=== PATIENT | female | born 1995 | race Two or more races ===

== ENCOUNTER 2017-05-17 17:51 | Emergency (ER) | payer OTHER ==
[2017-05-17 17:55] VITALS: BP 132/72; PULSE 78; TEMP 98.8; BMI 16.2
--- NOTE | 2017-05-17 17:55 | PDOC ---
Rapid Medical Evaluation Time Seen by Provider: 05/17/17 17:52 Medical Evaluation: 05/17/17 17:52 I have performed a brief in-person evaluation of this patient. The patient presents with a chief complaint of: pain to R knee cap x 3 days s/p slipping and twisting knee Pertinent physical exam findings: no ecchymosis/swelling/erythema to R knee I have ordered the following: x-ray The patient will proceed to the ED for further evaluation. Discharge Disposition - Diagnosis Knee pain - Referrals - Patient Instructions - Post Discharge Activity
--- NOTE | 2017-05-17 18:37 | PDOC ---
History of Present Illness - General Chief Complaint: Injury Stated Complaint: KNEE PAIN Time Seen by Provider: 05/17/17 17:52 History Source: Patient Exam Limitations: No Limitations - History of Present Illness Initial Comments: 05/17/17 18:37 Came for evaluation of right knee pain 3 days. States twisted her right knee and since that time has had swelling and tenderness to the medial and lateral aspects. Occurred: reports: last week Severity: reports: mild, moderate Pain Location: reports: lower extremity (right knee) Modifying Factors: improves with: cold therapy, pain medication Loss of Consciousness: no loss of consciousness Associated Symptoms (Fall): denies symptoms Past History - Travel Traveled outside of the country in the last 30 days: No Close contact w/someone who was outside of country & ill: No - Past Medical History Allergies/Adverse Reactions: Allergies Allergy/AdvReac Type Severity Reaction Status Date / Time No Known Allergies Allergy Verified 05/17/17 17:53 COPD: No - Suicide/Smoking/Psychosocial Hx Smoking History: Never smoked Have you smoked in the past 12 months: No Information on smoking cessation initiated: No Hx Alcohol Use: No Drug/Substance Use Hx: No Substance Use Type: None Review of Systems - Review of Systems Able to Perform ROS?: Yes Is the patient limited Nepalese proficient: Yes Constitutional: Yes: Symptoms Reported, See HPI, Malaise HEENTM: No: Symptoms Reported Respiratory: No: Symptoms reported Cardiac (ROS): No: Symptoms Reported Musculoskeletal: Yes: Symptoms Reported, See HPI, Joint Pain, Joint Swelling, Joint Stiffness Integumentary: Yes: Bruising. No: Symptoms Reported All Other Systems: Reviewed and Negative *Physical Exam - Vital Signs Last Vital Signs Temp Pulse Resp BP Pulse Ox 98.8 F 78 18 132/72 100 05/17/17 17:53 05/17/17 17:53 05/17/17 17:53 05/17/17 17:53 05/17/17 17:53 - Physical Exam General Appearance: Yes: Nourished, Appropriately Dressed, Apparent Distress HEENT: positive: TAN, Normal ENT Inspection, Normal Voice, TMs Normal, Pharynx Normal Neck: positive: Supple. negative: Tender Respiratory/Chest: positive: Lungs Clear Gastrointestinal/Abdominal: positive: Soft. negative: Tender Extremity: positive: Normal Capillary Refill, Normal Range of Motion, Swelling ( patella is mobile, has some mild ballottement inferiorly with some slight tenderness to the medial and lateral aspect of knee joint. Has full range of motion but tenderness is reproduced on flexion past 45. 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 Will provide Lino wrap as we have not any orthotic devices/immobilizers small enough to fit patient *DC/Admit/Observation/Transfer Diagnosis at time of Disposition: Knee pain Qualifiers: Chronicity: acute Laterality: right Qualified Code(s): M25.561 - Pain in right knee - Discharge Dispostion Disposition: HOME Condition at time of disposition: Stable Admit: No - Referrals Referrals: Tono Pace [Primary Care Provider] - Gabe Keating MD [Staff Physician] - - Patient Instructions Printed Discharge Instructions: DI for Knee Sprain Additional Instructions: Rest, ice to area on and off for 15 minutes 4-6 times a day Avoid heavy lifting or exercise until pain and swelling is resolved or until further directed Keep area highly elevated to reduce swelling Use splints/Lino wrap as directed Followup with orthopedist in one to 2 days if not improving, if significantly improved may wait one week for followup with orthopedist May use ibuprofen 2-200 mg tablets every 6 hours as needed for pain - Post Discharge Activity Forms/Work/School Notes: Back to Work
== END 2017-05-17 19:30 | disposition home or self-care (01) ==
LOC: JERFT 17:51
DX: M25.561 Pain in right knee (principal); X50.1XXA Overexertion from prolonged static or awkward postures, initial encounter; Y93.89 Activity, other specified; Y92.89 Other specified places as the place of occurrence of the external cause; Y99.8 Other external cause status
CPT/HCPCS: 73562-TC-RT-FY; 84703; 99281-25

== ENCOUNTER 2017-08-20 10:45 | Emergency (ER) | payer OTHER ==
[2017-08-20 10:51] VITALS: BMI 17.4
--- NOTE | 2017-08-20 11:20 | PDOC ---
History of Present Illness - General Chief Complaint: Suicidal Stated Complaint: SUICIDAL THOUGHTS Time Seen by Provider: 08/20/17 11:12 History Source: Patient Exam Limitations: No Limitations - History of Present Illness Initial Comments: 08/20/17 11:15 21-year-old female with a history of depression no prior treatment for this here today with concerns for recent suicidal attempt and suicidal ideations. Patient is here with her cousin who she expressed these ideations 2. Patient states that she has been suffering with severe beer depression over the last 2 years has had thoughts in the past of jumping in front of a train in a train tracks she reports she has been taking excessive NyQuil and Robitussin daily for both sleep and wanting to hurt herself. Patient was planning to run away today with a boyfriend when her cousin intervened. States that she has never told anybody about the suicidal ideations previously has never been admitted for depression. Denies any recent ingestions other than the daily NyQuil and Robitussin. Denies drug use no family history of suicide or psychiatric illness that is known however the patient is adopted. States that she also tried to wrap a telephone cord around her neck 2 days prior attempts to hurt herself Past History - Past Medical History Allergies/Adverse Reactions: Allergies Allergy/AdvReac Type Severity Reaction Status Date / Time No Known Allergies Allergy Verified 08/20/17 10:50 Home Medications: Ambulatory Orders Unobtainable 08/21/17 COPD: No - Suicide/Smoking/Psychosocial Hx Smoking History: Never smoked Have you smoked in the past 12 months: No Hx Alcohol Use: No Drug/Substance Use Hx: No Substance Use Type: None Review of Systems - Review of Systems Constitutional: No: Chills, Diaphoresis Respiratory: No: Cough, Orthopnea Cardiac (ROS): No: Chest Pain, Edema Musculoskeletal: No: See HPI, Back Pain, Gout Integumentary: No: Bruising Neurological: No: Headache Psychiatric: Yes: Depression All Other Systems: Reviewed and Negative *Physical Exam - Vital Signs Last Vital Signs Temp Pulse Resp BP Pulse Ox 98 F 101 H 20 122/67 99 08/20/17 10:47 08/20/17 10:47 08/20/17 10:47 08/20/17 10:47 08/20/17 10:47 - Physical Exam General Appearance: Yes: Appropriately Dressed HEENT: positive: Normal ENT Inspection Neck: positive: Trachea midline Respiratory/Chest: positive: Lungs Clear, Normal Breath Sounds Cardiovascular: positive: Regular Rhythm, Regular Rate, S1, S2 Gastrointestinal/Abdominal: positive: Normal Bowel Sounds, Flat, Soft Musculoskeletal: positive: Normal Inspection Extremity: positive: Normal Capillary Refill, Normal Inspection Integumentary: positive: Normal Color, Dry, Warm Neurologic: positive: Fully Oriented, Alert, Motor Strength 5/5, Depressed Affect, Other (positive SI) Heart Score/ECG Review #1 General ECG Interpretation: Sinus Rhythm, Normal Rate (84), Normal Intervals, No acute ischemic changes ED Treatment Course - LABORATORY CBC & Chemistry Diagram: 08/20/17 11:20 08/20/17 11:20 Medical Decision Making - Medical Decision Making 08/20/17 11:19 22-year-old female with recent suicide attempts and depression with current suicidal ideations. Plan to rule out toxic ingestion including tox screen Tylenol and salicylate levels basic labs and EKG. Patient is high risk due to the age of the patient as well as recent attempts and no current psychiatric treatment. Will seek psychiatric consult here in the ED patient may require admission for suicidality 08/20/17 15:10 pt seen by psychiatryk dr kraus, agree pt will require admission. 2pc filed, will work on placement for psychiatric admission. labs unremarkabel. *DC/Admit/Observation/Transfer Diagnosis at time of Disposition: Depressed - Discharge Dispostion Disposition: TRANSFER ACUTE CARE/OTHER HOSP Condition at time of disposition: Fair - Referrals - Patient Instructions - Post Discharge Activity Forms/Work/School Notes: My Personal Safety Plan
[2017-08-20 11:39] LABS: BASO % 0.8 % (0-2.0); EOS % 0.8 % (0-4.5); HEMATOCRIT 38.6 % (32.4-45.2); HEMOGLOBIN 12.4 GM/dL (10.7-15.3); LYMPH % 26.7 % (8-40); MCH 26.7 pg (25.7-33.7); MCHC 32.1 g/dl (32.0-36.0); MEAN PLT VOLUME 7.9 fl (7.5-11.1); MONO % 6.8 % (3.8-10.2); NEUT % 64.9 % (42.8-82.8); PLATELET COUNT 380 K/MM3 (134-434); RBC 4.64 M/mm3 (3.60-5.2); RDW 13.6 % (11.6-15.6); WHITE BLOOD COUNT 8.6 K/mm3 (4.0-10.0)
[2017-08-20 12:03] LABS: ALBUMIN 4.3 g/dl (3.4-5.0); ANION GAP 9 (8-16); BLOOD UREA NITROGEN 10 mg/dL (7-18); CALCIUM 9.1 mg/dL (8.5-10.1); CHLORIDE 105 mmol/L (98-107); CO2 24 mmol/L (21-32); CREATININE 1.1 mg/dL (0.55-1.02); GLUCOSE,RANDOM 92 mg/dL (74-106); POTASSIUM 3.3 mmol/L (3.5-5.1); SGOT/AST 15 U/L (15-37); SGPT/ALT 13 U/L (12-78); SODIUM 138 mmol/L (136-145)
[2017-08-20 12:06] LABS: ALK PHOS 64 U/L (45-117); BILIRUBIN,TOTAL 0.5 mg/dL (0.2-1.0); TOT PROT 8.4 g/dl (6.4-8.2)
[2017-08-20 12:11] LABS: COCAINE, UR NEGATIVE ng/ml (CUTOFF=300); METHADONE, UR NEGATIVE ng/ml (CUTOFF=300); OPIATES, URI NEGATIVE ng/ml (CUTOFF=300); PHENCYCLIDINE,URINE NEGATIVE ng/ml (CUTOFF=25); URINE AMPHETAMINES NEGATIVE ng/ml (CUTOFF=500); URINE BARBITURATES NEGATIVE ng/ml (CUTOFF=200); URINE BENZODIAZEPINES NEGATIVE ng/ml (CUTOFF=200)
--- NOTE | 2017-08-20 14:59 | CON.PSY ---
Psychiatry Consult Chief Complaint: 22 year old ind[place] female, brought WE$R for Suicidal ideas and palns< Patient reports many [id number] attempts from [id number]. she tries to hand herself with a telephonev Cord few days ago> patient si adopted andc feels abandoned and a constant failure.patient nmever soughyt Psychiatric treatment in them past. Symptoms: reports: Depressed Mood, Anhedonia, Worthlessness/Guilt, Decreased Energy, Suicidality, Self destructive thoughts, Appetite Disturbance, Weight change, Hopelessness, Sleep Disturbance - Previous Psychiatric Treatment Outpatient: None Inpatient: None - Previous Substance Abuse Treatment Outpatient: None Inpatient: None - Allergies Allergies: Allergies Allergy/AdvReac Type Severity Reaction Status Date / Time No Known Allergies Allergy Verified 08/20/17 10:50 - Current Living Status Usual Living Arrangement: With Parent - Current Mental Status Evaluation Appearance: Well Groomed Attitude: Cooperative - Affect Affect: Constrictive Appropriateness: Appropriate to Content - Mood Mood: Depressed - Speech/Language Expressive: Coherent - Psychomotor Activity Psychomotor Activity: Slowed - Thought Process Thought Process: Intact - Thought Content Hallucinations: Absent Delusions: Absent - Self Perception Self Perception: No Impairment - Cognition Attention: Alert Orientation: Time Memory, Immediate Recall: Intact Memory, Short Term: 3/3 Memory, Remote with Promptin/3 - Concentration Serial Sevens Intact: Yes Simple Calculations Intact: Yes - Abstraction Proverb Interpretation: Intact Judgement: Severely Impaired - Insight Insight: Intact - Impulse Control Impulse Control: Severly Impaired - Suicidal Ideation Suicidal Ideation: Yes (wants to jump infront of train.) - Homicidal Ideation Homicidal Ideation: No Assessment/Plan 1) Patient needs *In patient Psych Hospitalization.
[2017-08-20] MEDS ORDERED: ACETAMINOPHEN 325 MG TABLET (FP) PO ONE (15:09)
[2017-08-20] MEDS ORDERED: ACETAMINOPHEN 325 MG TABLET (FP) ONE (15:12)
[2017-08-21 11:22] VITALS: BP 115/80; PULSE 79; TEMP 98
--- NOTE | 2017-08-21 22:13 | EKG ---
Test Reason : Blood Pressure : / mmHG Vent. Rate : 084 BPM Atrial Rate : 084 BPM P-R Int : 120 ms QRS Dur : 082 ms QT Int : 358 ms P-R-T Axes : 074 083 027 degrees QTc Int : 423 ms NORMAL SINUS RHYTHM NORMAL ECG NO PREVIOUS ECGS AVAILABLE Confirmed by JOHN SALAS MD ([id number]) on 08/21/2017 10:13:29 PM Referred By: Confirmed By:JOHN SALAS MD
== END 2017-08-21 11:24 | disposition short-term general hospital (02) ==
LOC: JER 10:45
DX: F32.9 Major depressive disorder, single episode, unspecified (principal); R45.851 Suicidal ideations
CPT/HCPCS: 36415; 80053; 80307; 85025; 93005; 93010; 99285-25

== ENCOUNTER 2022-03-18 23:35 | Inpatient (IN) | payer OTHER ==
[2022-03-18 23:44] VITALS: BMI 19.3
[2022-03-19] MEDS ORDERED: LACTATED RINGERS SOLUTION 1000 ML INFUS.BAG IV ONE (00:16)
[2022-03-19] MEDS ORDERED: ACETAMINOPHEN 1000 MG/100 ML BAG IVPB ONE (00:16)
[2022-03-19] MEDS ORDERED: morphine SULFATE 4 MG/ML VIAL IVPUSH ONE (00:25)
[2022-03-19] MEDS ORDERED: morphine SULFATE 4 MG/ML VIAL ONE (00:48)
[2022-03-19 01:07] LABS: BASO % 0.6 % (0-2.0); EOS % 0.4 % (0-4.5); HEMATOCRIT 39.3 % (32.4-45.2); LYMPH % 12.2 % (8-40); MCH 24.7 pg (25.7-33.7); MCHC 30.6 g/dl (32.0-36.0); MEAN CELL VOLUME 80.8 fl (80-96); MEAN PLT VOLUME 7.6 fl (7.5-11.1); MONO % 4.8 % (3.8-10.2); PLATELET COUNT 519 10^3/uL (134-434); RBC 4.87 M/mm3 (3.60-5.2); RDW 15.1 % (11.6-15.6); WHITE BLOOD COUNT 17.6 K/mm3 (4.0-10.0)
[2022-03-19 01:24] LABS: ALBUMIN 3.9 g/dl (3.4-5.0); BLOOD UREA NITROGEN 14.7 mg/dL (7-18); CALCIUM 9.2 mg/dL (8.5-10.1)
[2022-03-19 01:28] LABS: CREATININE 1.1 mg/dL (0.55-1.3)
[2022-03-19 01:29] LABS: BILIRUBIN,TOTAL 0.3 mg/dL (0.2-1); TOT PROT 8.1 g/dl (6.4-8.2)
[2022-03-19] MEDS ORDERED: HYDROmorphone HCL CARPU-JECT 2 MG/1 ML DISP.SYRIN IVPUSH ONE (01:29)
[2022-03-19] MEDS ORDERED: ACETAMINOPHEN INJECTION 100 ML IVPB ONE (01:32)
[2022-03-19] MEDS ORDERED: POTASSIUM CHLORIDE TABS 20 MEQ TABLET.ER (FP) PO ONE ×2 (01:53→03:45)
[2022-03-19] MEDS ORDERED: MAGNESIUM SULF 50% (8.12 MEQ/2 ML-1 GM VIAL) IVPB ONE (02:04)
[2022-03-19 02:54] LABS: EPI CELLS >36 /uL (0-25.1); HCG,QUALITATIVE URINE Negative; HYALINE CASTS 0 /uL (0-3.1); URINE APPEARANCE CLOUDY; URINE BACTERIA 234 /uL (0-1359); URINE BILIRUBIN NEGATIVE (NEGATIVE); URINE COLOR YELLOW; URINE GLUCOSE (UA) NEGATIVE (NEGATIVE); URINE KETONE TRACE (NEGATIVE); URINE LEUK ESTERASE NEGATIVE (NEGATIVE); URINE NITRITE NEGATIVE (NEGATIVE); URINE PROTEIN NEGATIVE (NEGATIVE); URINE RBC 18 /uL (0-23.9); URINE UROBILINOGEN 0.2 mg/dL (0.2-1.0); URINE WBC 6 /uL (0-25.8)
[2022-03-19] MEDS ORDERED: CEFTRIAXONE 1 GM in DEXTROSE 5%-WATER - 50 ML IVPB ONE (03:20)
[2022-03-19] MEDS ORDERED: CEFTRIAXONE 1 GM/50 ML BAG ONE ×2 (03:45→17:32)
[2022-03-19] MEDS ORDERED: SODIUM CHLORIDE 1,000 ML IV SCH (11:45)
[2022-03-19] MEDS: SODIUM CHLORIDE 1,000 ML IV SCH (12:06)
[2022-03-19] MEDS: CEFTRIAXONE 2 GM in DEXTROSE 5%-WATER 100 ML IVPB SCH (16:45)
[2022-03-19 19:27] LABS: EOS % 2.5 % (0-4.5); HEMATOCRIT 31.9 % (32.4-45.2); HEMOGLOBIN 9.8 GM/dL (10.7-15.3); LYMPH % 33.8 % (8-40); MCH 25.2 pg (25.7-33.7); MCHC 30.8 g/dl (32.0-36.0); MEAN CELL VOLUME 81.9 fl (80-96); MEAN PLT VOLUME 7.9 fl (7.5-11.1); MONO % 8.8 % (3.8-10.2); NEUT % 53.9 % (42.8-82.8); PLATELET COUNT 360 10^3/uL (134-434); RBC 3.89 M/mm3 (3.60-5.2); RDW 15.7 % (11.6-15.6); WHITE BLOOD COUNT 8.1 K/mm3 (4.0-10.0)
[2022-03-19 19:39] LABS: BLOOD UREA NITROGEN 8.4 mg/dL (7-18)
[2022-03-19 19:42] LABS: CREATININE 0.7 mg/dL (0.55-1.3); PHOSPHOROUS 2.4 mg/dL (2.5-4.9)
[2022-03-19 19:44] LABS: BILIRUBIN,TOTAL 0.5 mg/dL (0.2-1)
[2022-03-19 19:56] LABS: ALBUMIN 2.9 g/dl (3.4-5.0)
[2022-03-20] MEDS: CEFTRIAXONE 2 GM in DEXTROSE 5%-WATER 100 ML IVPB SCH (09:15)
[2022-03-20 09:19] LABS: BASO % 1.2 % (0-2.0); EOS % 3.8 % (0-4.5); HEMATOCRIT 32.9 % (32.4-45.2); HEMOGLOBIN 10.1 GM/dL (10.7-15.3); LYMPH % 38.5 % (8-40); MCH 25.2 pg (25.7-33.7); MCHC 30.8 g/dl (32.0-36.0); MONO % 9.5 % (3.8-10.2); PLATELET COUNT 369 10^3/uL (134-434); RBC 4.02 M/mm3 (3.60-5.2); RDW 15.9 % (11.6-15.6); WHITE BLOOD COUNT 5.6 K/mm3 (4.0-10.0)
[2022-03-20 09:43] LABS: CALCIUM 8.2 mg/dL (8.5-10.1)
[2022-03-20 09:44] LABS: ALBUMIN 2.9 g/dl (3.4-5.0); BLOOD UREA NITROGEN 7.8 mg/dL (7-18)
[2022-03-20 09:46] LABS: PHOSPHOROUS 2.6 mg/dL (2.5-4.9)
[2022-03-20 09:47] LABS: CREATININE 0.7 mg/dL (0.55-1.3); TOT PROT 5.9 g/dl (6.4-8.2)
[2022-03-20 09:48] LABS: BILIRUBIN,TOTAL 0.4 mg/dL (0.2-1)
[2022-03-20] MEDS: ACETAMINOPHEN 325 MG TABLET (FP) PO PRN (13:31)
[2022-03-20] MEDS ORDERED: TAMSULOSIN HCL 0.4 MG CAP PO ONE (17:39)
[2022-03-20] MEDS: SODIUM CHLORIDE 1,000 ML IV SCH (17:48)
[2022-03-21] MEDS ORDERED: TAMSULOSIN HCL 0.4 MG CAP PO SCH (08:30)
[2022-03-21] MEDS: CEFTRIAXONE 2 GM in DEXTROSE 5%-WATER 100 ML IVPB SCH (09:17)
[2022-03-21 10:10] LABS: BASO % 1.2 % (0-2.0); EOS % 4.9 % (0-4.5); HEMATOCRIT 31.6 % (32.4-45.2); LYMPH % 45.9 % (8-40); MCH 25.5 pg (25.7-33.7); MCHC 31.5 g/dl (32.0-36.0); MEAN CELL VOLUME 80.8 fl (80-96); MEAN PLT VOLUME 7.7 fl (7.5-11.1); MONO % 12.5 % (3.8-10.2); NEUT % 35.5 % (42.8-82.8); PLATELET COUNT 332 10^3/uL (134-434); RBC 3.92 M/mm3 (3.60-5.2); RDW 15.3 % (11.6-15.6); WHITE BLOOD COUNT 4.8 K/mm3 (4.0-10.0)
[2022-03-21 10:56] LABS: BLOOD UREA NITROGEN 7.8 mg/dL (7-18); CALCIUM 8.3 mg/dL (8.5-10.1)
[2022-03-21 10:59] LABS: CREATININE 0.8 mg/dL (0.55-1.3)
[2022-03-21 11:00] LABS: TOT PROT 6.1 g/dl (6.4-8.2)
[2022-03-21 11:01] LABS: BILIRUBIN,TOTAL 0.2 mg/dL (0.2-1)
[2022-03-21] MEDS: POLYETHYLENE GLYCOL (HEALTHYLAX) 3350 17 GM PACKET PO SCH ×2 (15:44→22:15)
[2022-03-21] MEDS: ACETAMINOPHEN 325 MG TABLET (FP) PO PRN (18:10)
[2022-03-21] MEDS ORDERED: DOCUSATE SODIUM 100 MG CAPSULE (FP) PO SCH (22:00)
[2022-03-21] MEDS: TAMSULOSIN HCL 0.4 MG CAP PO SCH (22:15)
[2022-03-22] MEDS: POLYETHYLENE GLYCOL (HEALTHYLAX) 3350 17 GM PACKET PO SCH ×2 (07:19→13:20)
[2022-03-22] MEDS ORDERED: ACETAMINOPHEN/CAFFEINE/BUTALBITAL 1 TAB PO PRN (09:10)
[2022-03-22] MEDS: CEFTRIAXONE 2 GM in DEXTROSE 5%-WATER 100 ML IVPB SCH (09:19)
[2022-03-22] MEDS: TAMSULOSIN HCL 0.4 MG CAP PO SCH (09:19)
[2022-03-22 11:15] LABS: EOS % 4.3 % (0-4.5); HEMATOCRIT 32.4 % (32.4-45.2); HEMOGLOBIN 10.4 GM/dL (10.7-15.3); LYMPH % 39.3 % (8-40); MCH 25.9 pg (25.7-33.7); MCHC 32.1 g/dl (32.0-36.0); MEAN CELL VOLUME 80.8 fl (80-96); MEAN PLT VOLUME 7.7 fl (7.5-11.1); MONO % 7.8 % (3.8-10.2); NEUT % 47.6 % (42.8-82.8); PLATELET COUNT 336 10^3/uL (134-434); RBC 4.01 M/mm3 (3.60-5.2); RDW 15.6 % (11.6-15.6); WHITE BLOOD COUNT 4.7 K/mm3 (4.0-10.0)
[2022-03-22 11:35] LABS: CALCIUM 8.4 mg/dL (8.5-10.1)
[2022-03-22 11:36] LABS: BLOOD UREA NITROGEN 5.9 mg/dL (7-18); MAGNESIUM 1.8 mg/dL (1.8-2.4)
[2022-03-22 11:39] LABS: CREATININE 0.8 mg/dL (0.55-1.3)
[2022-03-22 11:41] LABS: BILIRUBIN,TOTAL 0.4 mg/dL (0.2-1); TOT PROT 6.5 g/dl (6.4-8.2)
[2022-03-22 14:46] VITALS: BP 108/58; PULSE 88; RESP 18; TEMP 96.4
== END 2022-03-22 15:44 | disposition home or self-care (01) | DRG 463 ==
LOC: JER 23:35 → JERBED 03-19 03:48 → J8W 03-19 18:46
PROVIDERS: ADMIT Internal Medicine; ATTEND Nurse Practitioner Acute Care
DX: N13.6 Pyonephrosis (principal); D72.829 Elevated white blood cell count, unspecified; R30.0 Dysuria; E87.6 Hypokalemia; R31.9 Hematuria, unspecified
CPT/HCPCS: 0241U-QW; 36415; 74176-TC; 80053; 81003; 82360; 83690; 83735; 84100; 84703; 85025; 87040; 87086; 88300-TC; 99285-25

== ENCOUNTER 2023-03-18 17:21 | Emergency (ER) | payer OTHER ==
[2023-03-18 18:05] VITALS: RESP 18; BMI 27.7
[2023-03-18] MEDS ORDERED: ACETAMINOPHEN 1000 MG/100 ML BAG IVPB ONE (20:24)
[2023-03-18] MEDS ORDERED: ACETAMINOPHEN INJECTION 100 ML IVPB ONE (20:31)
[2023-03-18 20:33] LABS: EPI CELLS 20 /uL (0-25.1); HYALINE CASTS 0 /uL (0-3.1); PH,URINE 7.5 (5.0-8.0); URINE APPEARANCE CLEAR; URINE BACTERIA 1069 /uL (0-1359); URINE BILIRUBIN NEGATIVE (NEGATIVE); URINE COLOR YELLOW; URINE GLUCOSE (UA) NEGATIVE (NEGATIVE); URINE KETONE NEGATIVE (NEGATIVE); URINE LEUK ESTERASE 3+ (NEGATIVE); URINE NITRITE NEGATIVE (NEGATIVE); URINE PROTEIN NEGATIVE (NEGATIVE); URINE RBC 8 /uL (0-23.9); URINE UROBILINOGEN 0.2 mg/dL (0.2-1.0); URINE WBC 150 /uL (0-25.8)
[2023-03-18] MEDS ORDERED: CEFTRIAXONE 1,000 MG in DEXTROSE 5%-WATER - 50 ML IVPB ONE (20:42)
[2023-03-18] MEDS ORDERED: CEFTRIAXONE 1 GM/50 ML BAG ONE (20:50)
[2023-03-18 21:00] LABS: BASO % 0.6 % (0-2.0); EOS % 3.9 % (0-4.5); HEMOGLOBIN 12.4 GM/dL (10.7-15.3); MCH 24.7 pg (25.7-33.7); MCHC 31.8 g/dl (32.0-36.0); MEAN CELL VOLUME 77.7 fl (80-96); MEAN PLT VOLUME 7.8 fl (7.5-11.1); MONO % 9.1 % (3.8-10.2); NEUT % 60.4 % (42.8-82.8); PLATELET COUNT 469 10^3/uL (134-434); RBC 5.02 M/mm3 (3.60-5.2); RDW 15.8 % (11.6-15.6); WHITE BLOOD COUNT 10.9 K/mm3 (4.0-10.0)
[2023-03-18 21:09] LABS: INR 1.38 (0.83-1.09)
[2023-03-18 21:12] LABS: ACTIVATED PTT 33.1 SECONDS (25.2-36.5)
[2023-03-18 21:19] LABS: POTASSIUM 3.9 mmol/L (3.5-5.1)
[2023-03-18 21:20] LABS: CALCIUM 9.4 mg/dL (8.5-10.1)
[2023-03-18 21:21] LABS: ALBUMIN 3.7 g/dl (3.4-5.0); BLOOD UREA NITROGEN 11.5 mg/dL (7-18)
[2023-03-18 21:25] LABS: CREATININE 0.8 mg/dL (0.55-1.3)
[2023-03-18 21:26] LABS: BILIRUBIN,TOTAL 0.1 mg/dL (0.2-1); TOT PROT 8.3 g/dl (6.4-8.2)
[2023-03-19 01:57] VITALS: BP 109/76; PULSE 88; TEMP 98.2
== END 2023-03-19 02:04 | disposition home or self-care (01) ==
LOC: JER 17:21
PROC: 3E03329 Introduction of Other Anti-infective into Peripheral Vein, Percutaneous Approach (ICD-10-PCS; principal; 2023-03-18)
PROC: 3E033NZ Introduction of Analgesics, Hypnotics, Sedatives into Peripheral Vein, Percutaneous Approach (ICD-10-PCS; 2023-03-18)
DX: R10.31 Right lower quadrant pain (principal); M54.50 Low back pain, unspecified; N39.0 Urinary tract infection, site not specified; N20.0 Calculus of kidney; Z20.822 Contact with and (suspected) exposure to COVID-19
CPT/HCPCS: 0241U-QW; 36415; 74177-TC; 80053; 81003; 83605; 84703; 85025; 85610; 85730; 86850; 86900; 86901; 87077; 87086; 99285-25; Q9967